=== PATIENT | male | born 1935 | race African-American/Black ===

== ENCOUNTER 2017-10-31 09:17 | Emergency (ER) | payer OTHER ==
[~2017-10-31] VITALS: Ht 180.3 cm; Wt 98.0 kg
[2017-10-31 09:18] VITALS: BP_SYST 154
[2017-10-31] MEDS ORDERED: CYCLOBENZAPRINE HCL 10 MG TABLET (FLEXERIL) PO ONE (09:45)
[2017-10-31] MEDS ORDERED: KETOROLAC TROMETHAMINE 30 MG VIAL IM ONE (09:45)
[2017-10-31 10:20] LABS: BILIRUBIN,URINE NEGATIVE (NEGATIVE); BLOOD, URINE 2+ (NEGATIVE); CLARITY/URINE HAZY (CLEAR); COLOR,URINE YELLOW (YELLOW); GLUCOSE,URINE NEGATIVE (NEGATIVE); KETONES,URINE NEGATIVE (NEGATIVE); LEUKOCYTE ESTERASE ,URINE 3+ (NEGATIVE); NITRITE, URINE POSITIVE (NEGATIVE); PH,URINE 6.5 (5.0-8.0); PROTEIN URINE NEGATIVE (NEGATIVE); UROBILINOGEN,URINE 0.2 (0.2-1.0)
[2017-10-31 10:29] LABS: BACTERIA,URINE MANY /HPF (None Seen)
[2017-10-31] MEDS ORDERED: CIPROFLOXACIN HCL 500 MG TABLET PO ONE (10:30)
[2017-10-31 10:47] VITALS: BP_SYST 154
== END 2017-10-31 10:46 | disposition home or self-care (01) ==
LOC: SED 09:17
DX: N12 Tubulo-interstitial nephritis, not specified as acute or chronic (principal); Z88.0 Allergy status to penicillin; Z88.8 Allergy status to other drugs, medicaments and biological substances
CPT/HCPCS: 81000; 87086; 96372; 99284; J1885; 87186-TC

== ENCOUNTER 2018-03-07 14:16 | Inpatient (IN) | payer OTHER ==
[~2018-03-07] VITALS: Ht 180.3 cm; Wt 95.3 kg
[2018-03-07 14:20] VITALS: BP_SYST 144
--- NOTE | 2018-03-07 14:22 | NUR ---
Patient to ER bed 05 to gown for evaluation. Side rails up.
--- NOTE | 2018-03-07 14:33 | NUR ---
patient is AOx4 arriving from home alone with c/o lower right abd pain 10/19 that comes and goes x 1 day. patient states he has never had this pain before but it hurts really bad. patient goes on to add that he can not pass gas and it hurts to touch his lower right abd. no other complaint or injury at this time.
--- NOTE | 2018-03-07 14:36 | NUR ---
ER at bedside examining patient.
[2018-03-07] MEDS ORDERED: NACL 0.9% 1,000 ML IV ONE (14:45)
--- NOTE | 2018-03-07 15:00 | NUR ---
RD at bedside for CRX.
--- NOTE | 2018-03-07 15:00 | NUR ---
Gary michel in ED - 03/07/18 at [email or web address] at bedside for CRX.
--- NOTE | 2018-03-07 15:00 | NUR ---
RD at bedside for chest xray.
[2018-03-07 15:06] LABS: BILIRUBIN,URINE NEGATIVE (NEGATIVE); BLOOD, URINE NEGATIVE (NEGATIVE); CLARITY/URINE CLEAR (CLEAR); COLOR,URINE YELLOW (YELLOW); GLUCOSE,URINE NEGATIVE (NEGATIVE); KETONES,URINE NEGATIVE (NEGATIVE); LEUKOCYTE ESTERASE ,URINE NEGATIVE (NEGATIVE); NITRITE, URINE NEGATIVE (NEGATIVE); PROTEIN URINE NEGATIVE (NEGATIVE); UROBILINOGEN,URINE 0.2 (0.2-1.0)
--- NOTE | 2018-03-07 15:14 | NUR ---
Gary michel in ED - 03/07/18 at [email or web address] at [facility] for KYLE.
[2018-03-07 15:40] LABS: ANION GAP 9 (5-15); CALCIUM 9.3 mg/dL (8.4-11.0); CHLORIDE 107 mmol/L (98-107); CREATININE 1.64 mg/dL (0.55-1.30); GLUCOSE 104 mg/dL (70-99); POTASSIUM 4.1 mmol/L (3.5-5.1); SODIUM SERUM 144 mmol/L (136-145); UREA NITROGEN, BLOOD 19 mg/dL (8-21)
[2018-03-07 15:43] LABS: BASOPHILS # (AUTO) 0.1 K/uL (0.0-0.2); BASOPHILS % (AUTO) 1.7 % (0.0-2.0); EOSINOPHILS # (AUTO) 0.1 K/uL (0.0-0.4); EOSINOPHILS % (AUTO) 2.2 % (0.0-4.0); HEMOGLOBIN 13.2 g/dL (14.0-18.0); LYMPHOCYTES # (AUTO) 1.6 K/uL (1.0-5.5); LYMPHOCYTES % (AUTO) 32.4 % (20.5-51.5); MEAN CORPUSCULAR HEMOGLOBIN 28 pg (27-31); MEAN CORPUSCULAR HGB CONC 33 % (32-36); MEAN CORPUSCULAR VOLUME 86 fL (79.0-98.0); MONOCYTES # (AUTO) 0.2 K/uL (0.0-1.0); MONOCYTES % (AUTO) 4.7 % (1.7-9.3); NEUTROPHILS # (AUTO) 2.9 K/uL (1.8-7.7); PLATELET COUNT (AUTO) 158 K/uL (130-430); PROTHROMBIN TIME 10.4 SECS (9.5-12.5); RED BLOOD CELL COUNT(AUTO) 4.66 MIL/uL (4.2-6.2); RED CELL DISTRIBUTION WIDTH 13.5 % (9.0-15.0); WHITE BLOOD COUNT (AUTO) 4.9 K/uL (4.8-10.8)
[2018-03-07 15:46] LABS: ALANINE AMINOTRANSFERASE 17 U/L (12-78); ALBUMIN 3.6 g/dL (3.4-4.8); ASPARTATE AMINOTRANSFERASE 15 U/L (10-37); TOTAL BILIRUBIN 0.4 mg/dL (0.0-1.0)
--- NOTE | 2018-03-07 15:59 | NUR ---
patient states he does not have any pain currently, however, he has had pain 8/10 a x3 in the past 1 hour.
--- NOTE | 2018-03-07 17:00 | NUR ---
Patient resting quietly in no acute distress, awaiting dispo.
--- NOTE | 2018-03-07 17:49 | NUR ---
Patient will be admitted to care of Dr. Dunn. Admitted to tele unit. Will go to room 113B.
--- NOTE | 2018-03-07 17:56 | NUR ---
Pt states that he doesn't take any home meds, only vitamins
--- NOTE | 2018-03-07 17:57 | NUR ---
Transfer to tele room 113-B via ACLS protocol. Licensed nurse present. IV present no signs or symptoms of infiltration.
--- NOTE | 2018-03-07 18:09 | NUR ---
Admission Note Received patient from ER with diagnosis of BRADYCARDIA. Initial Plan of Care discussed-patient verbalized understanding. Oriented to room, call light, pain management and safety.
[2018-03-07 18:16] VITALS: BP_SYST 145
--- NOTE | 2018-03-07 18:18 | NUR ---
CONSULTATION PAGED/CALLED Reason for Consultation: [] BRADYCARDIA Person Who was Notified: [] HENRRY Consulting Physician: [] DR Reymundo MELCHOR CASINO SHIFT MANAGER FOR DR LONDONO Health Data Analyst Specialty: [] CARDIOLOGY Ordering Physician: [] DR CHARLES
--- NOTE | 2018-03-07 18:40 | NUR ---
opening note patient is resting in bed A&Ox4, educated container shop welder light system, patient verbalized understanding, no other needs at this time, bed in the lowest position, bed alarm on, call light within reach, two side rails up, bed close to nurse station, fall precautions in place.
--- NOTE | 2018-03-07 19:29 | NUR ---
closing note report given at bedside, patient is resting in bed A&Ox4, family present in room, no needs at this time, endorse report to noc shift nurse, bed in the lowest position, bed alarm on, call light within reach, two side rails up, bed close to nurse station, fall precautions in place.
--- NOTE | 2018-03-07 19:53 | NUR ---
OPENING NOTES Pt and endorsement received from day shift nurse. Pt is AAOx4, sitting in bed while eating dinner. Family at bedside. Pt on saline lock on left hand G22. No complains of pain or discomfort at this time. No signs of acute distress noted. Call light with pt, bed alarm on and at its lowest level. Will continue to monitor.
[2018-03-07 20:00] VITALS: BP_SYST 127
[2018-03-07] MEDS ORDERED: LEVOFLOXACIN 500 MG/D5W 100 ML IV ONE ×2 (21:00→22:02)
[2018-03-07] MEDS ORDERED: metroNIDAZOLE 500 mg/NS 100 ML IV ONE (21:00)
[2018-03-07] MEDS ORDERED: ONDANSETRON HCL 4 MG/2 ML VIAL IVP PRN (21:00)
[2018-03-07] MEDS ORDERED: ALBUTEROL SULFATE 0.083% 2.5 MG/3 ML VIAL.NEB INH PRN (21:00)
[2018-03-07] MEDS ORDERED: MORPHINE 4 MG/ML INJ. SYRINGE IVP PRN (21:00)
--- NOTE | 2018-03-07 21:00 | NUR ---
SPOKE TO DR. MELCHOR Spoke to Dr. Melchor over the phone and he asked pt's condition and diagnosis. Told Dr. Melchor pt's diagnosis and lowest HR was 44bpm. Also told Dr. Melchor that pt is not complaining of abdominal pain. Dr. Melchor said he will see the pt in the morning. No orders were given.
[2018-03-07] MEDS ORDERED: metroNIDAZOLE 500 mg/NS 200 ML IV ONE (22:02)
--- NOTE | 2018-03-07 22:15 | NUR ---
ROUNDS Pt is awake, alert while lying in bed. No signs of acute distress and no complains of pain or discomfort at this time. Encouraged to use call light when needed. Safety precautions in place, bed alarm on and at lowest level, call light with pt. Will continue to monitor. Addendum: 03/09/18 at 0211 by Siobhan Herrera RN WRONG ENTRY, WRONG DATE. DISREGARD NOTES.
[2018-03-07 22:44] VITALS: BP_SYST 127
[2018-03-07] MEDS: NACL 0.9% 1,000 ML IV SCH (22:57)
--- NOTE | 2018-03-07 23:30 | NUR ---
RESTING Pt is resting in bed with both eyes closed. With visible chest rise and fall with non-labored breathing noted. No complains of pain or discomfort at this time. No signs of acute distress noted. Tele monitor Rafael stated that the pt had a second degree AVB Block Type 2. Charge nurse Ayan made aware. Will continue to monitor.
--- NOTE | 2018-03-07 23:50 | NUR ---
EKG DONE AT BEDSIDE EKG done at bedside by RT. Results will be endorsed and reported to MD in the morning.
[2018-03-08] VITALS: BP_SYST 118
--- NOTE | 2018-03-08 03:39 | NUR ---
RESTING Pt is resting in bed with both eyes closed. With visible chest rise and fall with non-labored breathing noted. No complains of pain or discomfort at this time. No signs of acute distress noted. Safety precautions in place and call light with pt. Will continue to monitor.
--- NOTE | 2018-03-08 05:18 | NUR ---
RESTING Pt is resting in bed with both eyes closed. With visible chest rise and fall with non-labored breathing noted. No signs of acute distress noted. Safety precautions in place and call light with pt. Will continue to monitor.
[2018-03-08] MEDS: metroNIDAZOLE 500 mg/NS 100 ML IV SCH ×3 (05:54→22:20)
[2018-03-08] MEDS: NACL 0.9% 1,000 ML IV SCH ×2 (06:46→14:18)
--- NOTE | 2018-03-08 06:58 | NUR ---
CLOSING NOTES Pt is resting in bed with both eyes closed. With visible chest rise and fall noted. No signs of acute distress or SOB noted. All needs attended throughout the shift. Safety precautions maintained. Will endorse to day shift nurse.
[2018-03-08 07:04] LABS: BASOPHILS % (AUTO) 0.4 % (0.0-2.0); EOSINOPHILS # (AUTO) 0.1 K/uL (0.0-0.4); EOSINOPHILS % (AUTO) 3.9 % (0.0-4.0); HEMATOCRIT 35.9 % (36-54); LYMPHOCYTES # (AUTO) 1.3 K/uL (1.0-5.5); LYMPHOCYTES % (AUTO) 40.8 % (20.5-51.5); MEAN CORPUSCULAR HEMOGLOBIN 29 pg (27-31); MEAN CORPUSCULAR HGB CONC 34 % (32-36); MEAN CORPUSCULAR VOLUME 85 fL (79.0-98.0); MONOCYTES # (AUTO) 0.2 K/uL (0.0-1.0); MONOCYTES % (AUTO) 6.6 % (1.7-9.3); NEUTROPHILS # (AUTO) 1.5 K/uL (1.8-7.7); NEUTROPHILS % (AUTO) 48.3 % (40.0-70.0); PLATELET COUNT (AUTO) 137 K/uL (130-430); RED BLOOD CELL COUNT(AUTO) 4.21 MIL/uL (4.2-6.2); RED CELL DISTRIBUTION WIDTH 13.4 % (9.0-15.0); WHITE BLOOD COUNT (AUTO) 3.1 K/uL (4.8-10.8)
[2018-03-08 07:15] LABS: ANION GAP 6 (5-15); CALCIUM 8.8 mg/dL (8.4-11.0); CHLORIDE 110 mmol/L (98-107); CREATININE 1.35 mg/dL (0.55-1.30); GLUCOSE 90 mg/dL (70-99); POTASSIUM 4.8 mmol/L (3.5-5.1); SODIUM SERUM 145 mmol/L (136-145); UREA NITROGEN, BLOOD 16 mg/dL (8-21)
[2018-03-08 07:25] LABS: ALANINE AMINOTRANSFERASE 13 U/L (12-78); ALBUMIN 2.9 g/dL (3.4-4.8); ASPARTATE AMINOTRANSFERASE 14 U/L (10-37); TOTAL BILIRUBIN 0.6 mg/dL (0.0-1.0)
[2018-03-08 08:00] VITALS: BP_SYST 136
--- NOTE | 2018-03-08 08:00 | NUR ---
Opening notes, received pt in bed, pt is aaox4, denies pain, no sob, no resp distress. hr is 43, no c.o dizziness, no chest pain. pt encouraged to call for assist and report to nurse chest pain. no c/o of abdominal pain at this time. safety precaution in place. call light in reach, bed in low position. bed alarm on. will cont to monitor.
[2018-03-08 08:03] LABS: CHOLESTEROL 127 mg/dL (<200); HDL CHOLESTEROL 43 mg/dL (>45); LDL CHOLESTEROL 68 mg/dL (<100); TRIGLYCERIDES 75 mg/dL (30-150)
--- NOTE | 2018-03-08 10:00 | NUR ---
pt in bed, resting comfortably, no c/o pain. no sob, will cont to monitor.
--- NOTE | 2018-03-08 10:15 | NUR ---
dr jacobs was here and seen and examined pt. requested md for dvt prophylaxis. md said pt will be going home today.
[2018-03-08 12:00] VITALS: BP_SYST 135
--- NOTE | 2018-03-08 12:20 | NUR ---
PT IN BED, NO C/O PAIN, NO SOB, NO DISTRESS. SAFETY PRECAUTION KEPT IN PLACE. WILL CONT TO MONITOR.
--- NOTE | 2018-03-08 15:00 | NUR ---
PT IN BED, NO C/O PAIN, NO SOB, NO DISTRESS. FAMILY AT BEDSIDE. UPDATE WITH PT'S STATUS. SAFETY PRECAUTION KEPT IN PLACE. WILL CONT TO MONITOR.
[2018-03-08 17:00] VITALS: BP_SYST 123
--- NOTE | 2018-03-08 18:32 | NUR ---
CLOSING NOTES, PT HAS BEEN STABLE THE WHOLE SHIFT, NO C/O PAIN, NO EPISODES OF RESP DISTRESS. NO ABDOMINAL PAIN. PT CLEARED BY DR MELCHOR FOR DISCHARGE. IV FLUIDS INFUSING WELL. NO S/S OF INFILTRATION ON IV SITE. SAFETY PRECAUTION KEPT IN PLACE. WILL ENDORSE TO NIGHT RN.
--- NOTE | 2018-03-08 19:54 | NUR ---
OPENING NOTES Pt and endorsement received from day shift nurse. Pt is AAOx4, sitting on a chair with daughters David and Lissa at bedside. No complains of pain or discomfort at this time and no signs of acute distress noted. Call light being fixed by a security at this time. Educated on safety precautions and encouraged to use call light when needed. Will continue to monitor.
[2018-03-08 20:27] VITALS: BP_SYST 126
--- NOTE | 2018-03-08 22:15 | NUR ---
ROUNDS Pt is awake, alert while lying in bed. No signs of acute distress and no complains of pain or discomfort at this time. Encouraged to use call light when needed. Safety precautions in place, bed alarm on and at lowest level, call light with pt. Will continue to monitor.
--- NOTE | 2018-03-08 23:50 | NUR ---
ASSISTED PT TO THE RESTROOM Assisted pt to the restroom and back to bed. Pt tolerated well. No signs of SOB or acute distress. Safety precautions in place and call light with pt. Will continue to monitor.
[2018-03-09 00:51] VITALS: BP_SYST 146
[2018-03-09] MEDS: NACL 0.9% 1,000 ML IV SCH (01:41)
--- NOTE | 2018-03-09 04:00 | NUR ---
ROUNDS Pt woke up and sitting on the bed. No complains of pain or discomfort. Pt asked if he can shower later in the morning, told him that he will have to be cleared or get approval from the doctor since he is a tele pt. Pt verbalizes understanding. Assisted pt back to bed. Call light with pt, bed alarm on and at lowest level. Will continue to monitor.
[2018-03-09] MEDS: metroNIDAZOLE 500 mg/NS 100 ML IV SCH (05:12)
--- NOTE | 2018-03-09 05:21 | NUR ---
PT GOT UP Pt got up the bed, disconnected IVF and removed monitoring coordinator. Pt insisted to shower and went to the restroom but SUPERVISOR CYTOLOGY Q calmed him down and assisted him back to bed. Explained to pt that he can't have shower at this time. Explained to him again that the doctor needs approval for him to take a shower. Reconnected IVF and tele monitor to pt. Safety precautions in place with bed alarm on and at lowest level. Call light with pt. Will continue to monitor.
--- NOTE | 2018-03-09 06:44 | NUR ---
CLOSING NOTES Pt is resting in bed with both eyes closed. With visible chest rise and fall with non-labored breathing noted. No signs of acute distress or SOB. All needs attended throughout the shift. Safety precautions in place and call light with pt. Will endorse to day shift nurse.
[2018-03-09 08:00] VITALS: BP_SYST 150
--- NOTE | 2018-03-09 08:00 | NUR ---
Opening Note received report from shift production associate RN, pt resting in bed, A&Ox4, respirations even and unlabored on room air, pt denies any pain, SOB, or dizziness, no acute distress noted, IV site clean, dry, intact, and infusing well, pt educated on use of call light and asked to call for assistance, pt verbalized understanding, call light in reach, pt educated on use of bed alarm for pt safety, pt refusing bed alarm, bed in low and locked position, room close to nurses station, fall and aspiration precautions in place.
--- NOTE | 2018-03-09 09:26 | NUR ---
RN Rounds pt sitting in bedside chair, pts daughter at bedside, pt denies any pain or SOB, no acute distress noted, no additional needs at this time, fall and aspiration precautions in place.
--- NOTE | 2018-03-09 09:36 | NUR ---
MD Rounds rounds with Dr. William MD informed that pt had episodes of v-tach on the monitor this AM, pt resting in bed, denies any chest pain, SOB, or dizziness, no acute distress noted, Dr. Hardy paged per Dr. Thomas's request.
[2018-03-09 09:45] VITALS: BP_SYST 150
--- NOTE | 2018-03-09 10:40 | NUR ---
MD Rounds round with Dr. Robles MD made aware of episode of v-tach this AMMD at bedside examining pt, per MD okay to discharge patient home.
--- NOTE | 2018-03-09 11:00 | NUR ---
Discharge orders to discharge pt home, pt and pts daughter provided with discharge packet and instructions, pt verbalized understanding, IV catheter removed, catheter intact, no bleeding, hospital ID band removed, tele monitor removed, pt stable, no acute distress noted, steady gait noted, pt accompanied by his daughter for discharge home, all belongings sent with pt, pt taken to parking lot via wheelchair.
--- NOTE | 2018-03-11 13:55 | NUR ---
Discharge Planning: DCP faxed pt order to Anitra at [facility] (f [phone] p [phone])
--- NOTE | 2018-03-13 15:48 | NUR ---
DISCHARGE FOLLOW UP PHONE CALL MUD MIXER OPERATOR phoned pt but no answer. MUD MIXER OPERATOR phoned dtr Annetta instead who states that the pt is doing well. Dtr states, no new prescription given. Dtr also stated they have not made an appointment with PCP due to the holiday and will bring the discharge packet to the appointment. At this time, there are no questions/concerns but will call SS if any arises.
== END 2018-03-09 11:00 | disposition home or self-care (01) | DRG 392 ==
LOC: SED 14:16 → STU 17:48
PROVIDERS: ADMIT Internal Medicine; ATTEND Internal Medicine
DX: R10.13 Epigastric pain (principal); R00.1 Bradycardia, unspecified; I10 Essential (primary) hypertension; G89.29 Other chronic pain; M54.9 Dorsalgia, unspecified; Z88.6 Allergy status to analgesic agent; Z85.46 Personal history of malignant neoplasm of prostate; Z88.0 Allergy status to penicillin; Z79.899 Other long term (current) drug therapy
CPT/HCPCS: 36415; 71045; 80053; 80061; 81003; 83605; 84484; 85025; 85610-TC; 85730-TC; 87040-TC; 93005; 93306; 96360; 99285; G0378; J1956; J3490; J7030

== ENCOUNTER 2018-11-21 13:49 | Inpatient (IN) | payer OTHER ==
[~2018-11-21] VITALS: Ht 179.1 cm; Wt 103.0 kg
[2018-11-21 13:50] VITALS: BP_SYST 137
[2018-11-21 14:48] LABS: HEMATOCRIT 40.4 % (36-54); HEMOGLOBIN 13.4 g/dL (14.0-18.0); MEAN CORPUSCULAR HEMOGLOBIN 29 pg (27-31); MEAN CORPUSCULAR HGB CONC 33 % (32-36); MEAN CORPUSCULAR VOLUME 87 fL (79.0-98.0); PLATELET COUNT (AUTO) 156 K/uL (130-430); RED BLOOD CELL COUNT(AUTO) 4.63 MIL/uL (4.2-6.2); RED CELL DISTRIBUTION WIDTH 14.4 % (9.0-15.0); WHITE BLOOD COUNT (AUTO) 3.5 K/uL (4.8-10.8)
[2018-11-21 14:58] LABS: ANION GAP 5 (5-15); CALCIUM 8.9 mg/dL (8.4-11.0); CHLORIDE 108 mmol/L (98-107); CREATININE 1.56 mg/dL (0.55-1.30); GLUCOSE 95 mg/dL (70-99); POTASSIUM 4.4 mmol/L (3.5-5.1); SODIUM SERUM 143 mmol/L (136-145); UREA NITROGEN, BLOOD 16 mg/dL (8-21)
[2018-11-21 15:04] LABS: ALANINE AMINOTRANSFERASE 16 U/L (12-78); ALBUMIN 3.8 g/dL (3.4-4.8); ASPARTATE AMINOTRANSFERASE 14 U/L (10-37); TOTAL BILIRUBIN 0.4 mg/dL (0.0-1.0)
[2018-11-21] MEDS ORDERED: MULT-1200 PO (15:54)
[2018-11-21] MEDS ORDERED: CHOL400D6 PO (15:54)
[2018-11-21 16:00] LABS: BAND % (MANUAL) 1 % (0-6); LYMPHOCYTES % (MANUAL) 42 % (20-46)
[2018-11-21 16:01] LABS: BASOPHILS % (MANUAL) 0 % (0-2); EOSINOPHILS % (MANUAL) 3 % (0-7); MONOCYTES % (MANUAL) 6 % (0-11)
[2018-11-21] MEDS ORDERED: ASPIRIN 81 MG TAB.CHEW PO SCH (17:15)
[2018-11-21 17:17] VITALS: BP_SYST 122
[2018-11-21 18:07] LABS: CHOLESTEROL 145 mg/dL (<200); HDL CHOLESTEROL 51 mg/dL (>45); LDL CHOLESTEROL 78 mg/dL (<100); TRIGLYCERIDES 90 mg/dL (30-150)
[2018-11-21] MEDS ORDERED: CLOPIDOGREL BISULFATE 75 MG TABLET PO ONE (18:15)
[2018-11-21 21:27] VITALS: BP_SYST 110
[2018-11-22 00:15] VITALS: BP_SYST 116
[2018-11-22 07:38] VITALS: BP_SYST 126
[2018-11-22] MEDS ORDERED: CLOPIDOGREL BISULFATE 75 MG TABLET PO SCH (09:00)
[2018-11-22 12:30] VITALS: BP_SYST 129
[2018-11-22 14:23] VITALS: BP_SYST 126
== END 2018-11-22 15:00 | disposition home or self-care (01) | DRG 392 ==
LOC: SED 13:49 → STU 16:40 → SMU 16:54 → STU 21:25
PROVIDERS: ADMIT Internal Medicine Hospice and Palliative Medicine; ATTEND Internal Medicine Hospice and Palliative Medicine
DX: K21.9 Gastro-esophageal reflux disease without esophagitis (principal); G89.29 Other chronic pain; I10 Essential (primary) hypertension; Z88.0 Allergy status to penicillin; Z88.6 Allergy status to analgesic agent; Z79.899 Other long term (current) drug therapy; Z85.46 Personal history of malignant neoplasm of prostate
CPT/HCPCS: 36415; 71045; 80053; 80061; 82550-TC; 84484; 85007; 85027; 85379; 93005; 93306; 99285; G0378

== ENCOUNTER 2021-05-08 09:47 | Emergency (ER) | payer OTHER ==
[~2021-05-08] VITALS: Ht 180.3 cm; Wt 95.3 kg
[~2021-05-08 09:47] MED LIST: CHOL400D6 PO; MULT-1200 PO
[2021-05-08 09:50] VITALS: BP_SYST 144
[2021-05-08 10:36] LABS: WHITE BLOOD COUNT (AUTO) 3.1 K/uL (4.8-10.8)
[2021-05-08 10:44] LABS: ANION GAP 10 (5-15); CALCIUM 8.8 mg/dL (8.4-11.0); CHLORIDE 105 mmol/L (98-107); GLUCOSE 122 mg/dL (70-99); POTASSIUM 4.5 mmol/L (3.5-5.1); SODIUM SERUM 142 mmol/L (136-145); UREA NITROGEN, BLOOD 20 mg/dL (8-21)
[2021-05-08 10:52] LABS: ALANINE AMINOTRANSFERASE 18 U/L (12-78); ALBUMIN 3.7 g/dL (3.4-4.8); ASPARTATE AMINOTRANSFERASE 25 U/L (10-37); TOTAL BILIRUBIN 0.7 mg/dL (0.0-1.0)
[2021-05-08 11:04] LABS: EOSINOPHILS # (AUTO) 0.1 K/uL (0.0-0.4); EOSINOPHILS % (AUTO) 2.8 % (0.0-4.0); HEMATOCRIT 40.6 % (36-54); HEMOGLOBIN 13.4 g/dL (14.0-18.0); LYMPHOCYTES # (AUTO) 1.2 K/uL (1.0-5.5); LYMPHOCYTES % (AUTO) 39.2 % (20.5-51.5); MEAN CORPUSCULAR HEMOGLOBIN 28 pg (27-31); MEAN CORPUSCULAR HGB CONC 33 % (32-36); MEAN CORPUSCULAR VOLUME 86 fL (79.0-98.0); MONOCYTES # (AUTO) 0.2 K/uL (0.0-1.0); MONOCYTES % (AUTO) 6.3 % (1.7-9.3); NEUTROPHILS # (AUTO) 1.6 K/uL (1.8-7.7); NEUTROPHILS % (AUTO) 50.7 % (40.0-70.0); PLATELET COUNT (AUTO) 169 K/uL (130-430); RED BLOOD CELL COUNT(AUTO) 4.73 MIL/uL (4.2-6.2); RED CELL DISTRIBUTION WIDTH 14.1 % (9.0-15.0)
[2021-05-08 13:22] VITALS: BP_SYST 138
== END 2021-05-08 13:22 | disposition home or self-care (01) ==
LOC: SED 09:47
DX: R10.9 Unspecified abdominal pain (principal); R00.1 Bradycardia, unspecified; I10 Essential (primary) hypertension; Z88.0 Allergy status to penicillin; Z88.6 Allergy status to analgesic agent; Z79.899 Other long term (current) drug therapy
CPT/HCPCS: 36415; 71045; 80053; 83735; 83880; 84484; 85025; 93005; 99285

== ENCOUNTER 2021-10-11 05:56 | Inpatient (IN) | payer OTHER ==
[~2021-10-11] VITALS: Ht 180.3 cm; Wt 93.9 kg
[2021-10-11 06:10] VITALS: BP_SYST 138
--- NOTE | 2021-10-11 06:33 | NUR ---
Pt BIB daughter C/O palpitations and dizziness Hx of pacemaker AOX4 VSS Able to make needs known Will continue to monitor
--- NOTE | 2021-10-11 06:33 | NUR ---
Placed in room 1 . Placed on cardiac cath lab radiology technologist, blood pressure machine and pulse oximeter. To gown for exam. Side rails up. MD at bedside
[2021-10-11 06:57] LABS: BASOPHILS % (AUTO) 1.1 % (0.0-2.0); EOSINOPHILS # (AUTO) 0.1 K/uL (0.0-0.4); EOSINOPHILS % (AUTO) 2.7 % (0.0-4.0); HEMATOCRIT 38.5 % (36-54); HEMOGLOBIN 12.9 g/dL (14.0-18.0); LYMPHOCYTES # (AUTO) 1.4 K/uL (1.0-5.5); LYMPHOCYTES % (AUTO) 41.9 % (20.5-51.5); MEAN CORPUSCULAR HEMOGLOBIN 29 pg (27-31); MEAN CORPUSCULAR HGB CONC 34 % (32-36); MEAN CORPUSCULAR VOLUME 86 fL (79.0-98.0); MONOCYTES # (AUTO) 0.2 K/uL (0.0-1.0); MONOCYTES % (AUTO) 6.7 % (1.7-9.3); NEUTROPHILS # (AUTO) 1.6 K/uL (1.8-7.7); NEUTROPHILS % (AUTO) 47.6 % (40.0-70.0); PLATELET COUNT (AUTO) 140 K/uL (130-430); RED CELL DISTRIBUTION WIDTH 14.4 % (9.0-15.0); WHITE BLOOD COUNT (AUTO) 3.3 K/uL (4.8-10.8)
[2021-10-11 07:08] LABS: ANION GAP 7 (5-15); CALCIUM 9.1 mg/dL (8.4-11.0); CHLORIDE 111 mmol/L (98-107); CREATININE 1.69 mg/dL (0.55-1.30); GLUCOSE 119 mg/dL (70-99); POTASSIUM 4.2 mmol/L (3.5-5.1); SODIUM SERUM 146 mmol/L (136-145); UREA NITROGEN, BLOOD 19 mg/dL (8-21)
[2021-10-11 07:10] LABS: INR 1.1 (0.80-1.20)
--- NOTE | 2021-10-11 07:14 | NUR ---
Gave report to roberto for continous of care
[2021-10-11 07:17] LABS: ALANINE AMINOTRANSFERASE 9 U/L (12-78); ALBUMIN 3.5 g/dL (3.4-4.8); ASPARTATE AMINOTRANSFERASE 16 U/L (10-37); TOTAL BILIRUBIN 0.3 mg/dL (0.0-1.0)
[2021-10-11] MEDS ORDERED: MECLIZINE HCL 25 MG TABLET (ANITVERT) PO ONE (07:30)
--- NOTE | 2021-10-11 07:31 | NUR ---
DR. BOURGEOIS WENT BEDSIDE AND TALKED TO PT AGAIN. PT IS PLANNED TO ADMIT TO HOSPITAL FOR OBSERVATION.
--- NOTE | 2021-10-11 08:45 | NUR ---
DR. PABON CALLED AND ADMITED PT TO TELE FOR ABSERVATION.
--- NOTE | 2021-10-11 13:53 | NUR ---
STILL NO BED IN TELE. HOLDING IN ER. DAUGHTER WALKED IN TO VISIT PT. LUNCH OFFERED TO PT. PT ATE WELL.
--- NOTE | 2021-10-11 17:34 | NUR ---
CONSULT CARDIOLOGY PALPITATIONS DR ZAFAR [phone] S/W KIERRA EXCHANGE
--- NOTE | 2021-10-11 17:39 | NUR ---
GOT BED IN TEL 108. PT WAS SENT TO TELE. REPORT GIVEN BEDSIDE TO TENZIN ENRIQUE.
--- NOTE | 2021-10-11 17:45 | NUR ---
Report received from IVA Lerma. Patient in stable condition. Alert and oriented x4. No neuro deficits. Patient is ambulatory with steady gait. Vital signs stable. Patient is able to make needs known. No skin issues noted. Will continue to monitor. Call light within reach.
[2021-10-11 18:04] VITALS: BP_SYST 146
[2021-10-11 18:17] VITALS: BP_SYST 116
--- NOTE | 2021-10-11 20:00 | NUR ---
RECEIVED IN BED A/OX4 DENIES PAIN AT THIS TIME ASSESSMENT COMPLETED PLAN OF CARE REVIEWED NO DISTRESS NOTED DENIES CHEST PAIN AND PALPITATIONS AT THIS TIME BREATHING EVEN NON LABORED ORIENTED TO ROOM CALL LIGHT IN REACH ALL PERSONAL ITEMS WITHIN REACH WILL CONTINUE TO MONITOR AND ASSESS
[2021-10-11 20:13] VITALS: BP_SYST 134
[2021-10-11] MEDS: APIXABAN 2.5 MG TABLET PO SCH (21:03)
[2021-10-11] MEDS: MECLIZINE HCL 25 MG TABLET (ANITVERT) PO SCH (21:03)
[2021-10-11 22:16] VITALS: BP_SYST 145
[2021-10-12] VITALS: BP_SYST 136
--- NOTE | 2021-10-12 00:30 | NUR ---
NO DISTRESS NOTED RESTING EASILY AROUSED DENIES PAIN VSS CALL LIGHT REMAINS IN REACH WILL CONTINUE TO MONITOR AND ASSESS
[2021-10-12 02:58] LABS: ALANINE AMINOTRANSFERASE 14 U/L (12-78); ALBUMIN 3.3 g/dL (3.4-4.8); ANION GAP 3 (5-15); ASPARTATE AMINOTRANSFERASE 17 U/L (10-37); CHLORIDE 112 mmol/L (98-107); CREATININE 1.59 mg/dL (0.55-1.30); GLUCOSE 112 mg/dL (70-99); POTASSIUM 4.5 mmol/L (3.5-5.1); SODIUM SERUM 146 mmol/L (136-145); TOTAL BILIRUBIN 0.4 mg/dL (0.0-1.0); UREA NITROGEN, BLOOD 21 mg/dL (8-21)
[2021-10-12 03:17] LABS: CORRECTED WHITE BLOOD COUNT 4.1 K/uL (4.5-11.0); WHITE BLOOD COUNT (AUTO) 4.1 K/uL (4.8-10.8)
[2021-10-12 03:18] LABS: HEMATOCRIT 38.6 % (36-54); HEMOGLOBIN 13.1 g/dL (14.0-18.0); MEAN CORPUSCULAR HEMOGLOBIN 29 pg (27-31); MEAN CORPUSCULAR HGB CONC 34 % (32-36); MEAN CORPUSCULAR VOLUME 85 fL (79.0-98.0); PLATELET COUNT (AUTO) 144 K/uL (130-430); RED BLOOD CELL COUNT(AUTO) 4.56 MIL/uL (4.2-6.2); RED CELL DISTRIBUTION WIDTH 14.2 % (9.0-15.0)
[2021-10-12 03:19] LABS: BASOPHILS % (AUTO) 0.8 % (0.0-2.0); EOSINOPHILS % (AUTO) 1.9 % (0.0-4.0); LYMPHOCYTES # (AUTO) 1.2 K/uL (1.0-5.5); LYMPHOCYTES % (AUTO) 29.2 % (20.5-51.5); MONOCYTES # (AUTO) 0.4 K/uL (0.0-1.0); MONOCYTES % (AUTO) 9.2 % (1.7-9.3); NEUTROPHILS # (AUTO) 2.4 K/uL (1.8-7.7); NEUTROPHILS % (AUTO) 58.9 % (40.0-70.0)
[2021-10-12 03:20] LABS: EOSINOPHILS # (AUTO) 0.1 K/uL (0.0-0.4)
[2021-10-12 03:36] LABS: CHOLESTEROL 152 mg/dL (<200); HDL CHOLESTEROL 53 mg/dL (>45); LDL CHOLESTEROL 72 mg/dL (<100); TRIGLYCERIDES 54 mg/dL (30-150)
[2021-10-12 04:00] VITALS: BP_SYST 142
[2021-10-12 08:18] VITALS: BP_SYST 156
[2021-10-12] MEDS ORDERED: ACETAMINOPHEN 325 MG TABLET PO PRN (08:45)
[2021-10-12] MEDS ORDERED: NALOXONE HCL 0.4 MG/ML AMP (NARCAN) IVP PRN ×2 (08:45)
[2021-10-12] MEDS ORDERED: LORazepam 2 MG/ML VIAL IVP PRN (08:45)
[2021-10-12] MEDS ORDERED: HYDROcodone/ACETAMIN 10-325 MG TAB PO PRN (08:45)
[2021-10-12] MEDS ORDERED: ONDANSETRON HCL 4 MG/2 ML VIAL IVP PRN (08:45)
[2021-10-12] MEDS ORDERED: HYDROcodone/ACETAMIN 5-325 MG TAB (NORCO/ VICODIN) PO PRN (08:45)
[2021-10-12] MEDS ORDERED: METOPROLOL SUCCINATE 50 MG TAB.SR.24H (TOPROL XL) PO ONE (09:30)
[2021-10-12] MEDS: MULTIVITS,CA,MINERALS/IRON/FA 1 TABLET PO SCH (10:03)
[2021-10-12] MEDS: APIXABAN 2.5 MG TABLET PO SCH ×2 (10:04→20:45)
[2021-10-12] MEDS: MECLIZINE HCL 25 MG TABLET (ANITVERT) PO SCH ×3 (10:12→20:45)
[2021-10-12] MEDS: D5/0.45 NS 1,000 ML IV SCH ×3 (10:21→20:46)
--- NOTE | 2021-10-12 11:11 | NUR ---
Logo Admission Assessment - Care Management Last Saved By: Stella Mcgovern Last Saved On: 10/12/2021 11:11 AM (PT) Created By: Stella Mcgovern Created On: 10/12/2021 11:09 AM (PT) Patient Information Patient Name: THERESA HUERTA [address]: [address] [place] [id number] SSN: : 1935 (age 86 years) Work Phone: [phone] Gender: Male Alternative Phone: Marital Status: Race: BLACK-AFR LATVIAN Race 2: Ethnicity: Not or or Nicaraguan Origin Ethnicity 2: Patient's Information Who was Interviewed? Answers: Other - Specify (Caregiver, Family, Friend etc) Notes: kaden BAEZ What language does the patient speak? Answers: Guyanese Admitting Facility Answers: *[facility] [[id number]] Admitting Diagnosis palpitation Advanced Care Planning (check all that apply) Answers: Advanced Directives? Notes: yes Healthcare DPOA? If Yes - Name of DPOA/Relation Notes: kaden Ewing [phone] Additional Patient Notes covid vaccine: fully vaccinated & boosted History and Prior Level of Function DME--PRIOR to Admission: Answers: Andre Notes: PRN Cognitive--PRIOR to Admission: Answers: Alert & Orientated Home Setting--PRIOR to Admission: Answers: Private Home Notes: [facility] has someone staying with him Was patient receiving Home Health Services prior to Admission? Answers: No Potential Barriers to Discharge Anticipated Discharge Disposition Answers: Home with Notes: patient still drives, has unsteady gait , will need pt at DC Does the patient have any potential barriers to DC? (indicate barrier & plan to address) Answers: NO, anticipate DC to previous living situations, no additional services anticipated Signature Signature: Signature Date Signed: 10/12/2021 11:11 AM (PT) Signed By: Stella Mcgovern Position: Inpatient Stoneworking Belt Sander Pager Number: Allscripts Generated (Scan) Page 1 of Copyright 2021 [employer] [facility] [employer]. [Production(ry--[id number])]
[2021-10-12 12:15] VITALS: BP_SYST 131
--- NOTE | 2021-10-12 13:17 | NUR ---
PATIENT IS INDEPENDENT IN HIS FUNCTIONAL MOBILITY. NO NEED FOR FURTHER PHYSICAL THERAPY. NURSING WILL CONTINUE TO SUPERVISE HIM FOR SAFETY.
[2021-10-12 16:16] VITALS: BP_SYST 126
[2021-10-12 20:00] VITALS: BP_SYST 134
--- NOTE | 2021-10-12 20:00 | NUR ---
RECEIVED IN BED AWAKE ABLE TO MAKE NEEDS KNOWN DENIES PAIN AT THIS TIME ASSESSMENT COMPLETED PLAN OF CARE REVIEWED DENIES CHEST PAIN AND PALPATATIIONS PT PACED ON TELEMETRY BREATHING EVEN AND NON LABORED WILL CONITNUE TO MONITOR AND ASSESS
[2021-10-13 00:27] VITALS: BP_SYST 122
[2021-10-13 04:05] VITALS: BP_SYST 129
--- NOTE | 2021-10-13 04:12 | NUR ---
ALL NEEDS ANTICIPATED AND MET NO DITRESS AT THIS TIME
[2021-10-13 07:36] LABS: BASOPHILS % (AUTO) 0.6 % (0.0-2.0); EOSINOPHILS # (AUTO) 0.1 K/uL (0.0-0.4); EOSINOPHILS % (AUTO) 3.9 % (0.0-4.0); HEMATOCRIT 43.9 % (36-54); HEMOGLOBIN 14.8 g/dL (14.0-18.0); LYMPHOCYTES # (AUTO) 1.5 K/uL (1.0-5.5); LYMPHOCYTES % (AUTO) 39.9 % (20.5-51.5); MEAN CORPUSCULAR HEMOGLOBIN 29 pg (27-31); MEAN CORPUSCULAR HGB CONC 34 % (32-36); MEAN CORPUSCULAR VOLUME 87 fL (79.0-98.0); MONOCYTES # (AUTO) 0.2 K/uL (0.0-1.0); MONOCYTES % (AUTO) 6.1 % (1.7-9.3); NEUTROPHILS # (AUTO) 1.8 K/uL (1.8-7.7); NEUTROPHILS % (AUTO) 49.5 % (40.0-70.0); PLATELET COUNT (AUTO) 164 K/uL (130-430); RED BLOOD CELL COUNT(AUTO) 5.08 MIL/uL (4.2-6.2); RED CELL DISTRIBUTION WIDTH 14.5 % (9.0-15.0); WHITE BLOOD COUNT (AUTO) 3.7 K/uL (4.8-10.8)
[2021-10-13 07:47] LABS: ANION GAP 9 (5-15); CALCIUM 9.1 mg/dL (8.4-11.0); CHLORIDE 106 mmol/L (98-107); CREATININE 1.41 mg/dL (0.55-1.30); GLUCOSE 83 mg/dL (70-99); POTASSIUM 4.4 mmol/L (3.5-5.1); SODIUM SERUM 142 mmol/L (136-145); UREA NITROGEN, BLOOD 23 mg/dL (8-21)
[2021-10-13 08:00] VITALS: BP_SYST 140
[2021-10-13] MEDS ORDERED: METOPROLOL SUCCINATE 50 MG TAB.SR.24H (TOPROL XL) PO SCH (09:00)
[2021-10-13] MEDS ORDERED: CHOLECALCIFEROL (VITAMIN D-3) 400 UNIT TABLET PO SCH (09:00)
[2021-10-13] MEDS: MULTIVITS,CA,MINERALS/IRON/FA 1 TABLET PO SCH (09:47)
[2021-10-13] MEDS: APIXABAN 2.5 MG TABLET PO SCH (09:47)
[2021-10-13] MEDS: MECLIZINE HCL 25 MG TABLET (ANITVERT) PO SCH (09:49)
[2021-10-13] MEDS: D5/0.45 NS 1,000 ML IV SCH (09:54)
[2021-10-13] MEDS ORDERED: METO-542 PO (10:08)
[2021-10-13] MEDS ORDERED: APIX2.5T PO (10:08)
[2021-10-13] MEDS ORDERED: MECL-160 PO (10:08)
[2021-10-13 12:00] VITALS: BP_SYST 144
[2021-10-13 14:28] VITALS: BP_SYST 144
== END 2021-10-13 15:06 | disposition home health service (06) | DRG 308 ==
LOC: SED 05:56 → STU 17:10
PROVIDERS: ADMIT Preventive Medicine Preventive Medicine/Occupational Environmental Medicine; ATTEND Preventive Medicine Preventive Medicine/Occupational Environmental Medicine
DX: I48.0 Paroxysmal atrial fibrillation (principal); N17.0 Acute kidney failure with tubular necrosis; E87.0 Hyperosmolality and hypernatremia; R00.2 Palpitations; Z20.822 Contact with and (suspected) exposure to COVID-19; G89.29 Other chronic pain; R42 Dizziness and giddiness; D72.819 Decreased white blood cell count, unspecified; D64.9 Anemia, unspecified; R73.9 Hyperglycemia, unspecified; E55.9 Vitamin D deficiency, unspecified; I12.9 Hypertensive chronic kidney disease with stage 1 through stage 4 chronic kidney disease, or unspecified chronic kidney disease; N18.2 Chronic kidney disease, stage 2 (mild); Z85.46 Personal history of malignant neoplasm of prostate; Z95.0 Presence of cardiac pacemaker; Z79.01 Long term (current) use of anticoagulants; Z87.891 Personal history of nicotine dependence; Z88.0 Allergy status to penicillin; Z88.6 Allergy status to analgesic agent
CPT/HCPCS: 36415; 70450-TC; 71045; 76376; 80048; 80053; 80061; 83735; 83880; 84484; 85025; 85610-TC; 85730-TC; 93005; 93306; 99291; G0378; J8597

== ENCOUNTER 2022-08-09 07:41 | Emergency (ER) | payer OTHER ==
[~2022-08-09] VITALS: Ht 185.4 cm; Wt 81.6 kg
[~2022-08-09 07:41] MED LIST changes: +APIX2.5T PO; +MECL-160 PO; +METO-542 PO
[2022-08-09 07:50] VITALS: BP_SYST 133
[2022-08-09] MEDS ORDERED: COLC0.6T67 PO (08:17)
[2022-08-09] MEDS ORDERED: NAPR-1172 PO (08:17)
[2022-08-09] MEDS ORDERED: ALLO100T PO (08:17)
[2022-08-09 08:35] VITALS: BP_SYST 117
== END 2022-08-09 08:40 | disposition home or self-care (01) ==
LOC: SED 07:41
DX: M10.071 Idiopathic gout, right ankle and foot (principal); M25.471 Effusion, right ankle; I10 Essential (primary) hypertension; Z88.0 Allergy status to penicillin; Z88.6 Allergy status to analgesic agent; Z79.899 Other long term (current) drug therapy
CPT/HCPCS: 99283

== ENCOUNTER 2022-08-26 11:43 | Emergency (ER) | payer OTHER ==
[~2022-08-26] VITALS: Ht 185.4 cm; Wt 90.7 kg
[2022-08-26 11:43] VITALS: BP_SYST 148
[~2022-08-26 11:43] MED LIST changes: +ALLO100T PO; +COLC0.6T67 PO; +NAPR-1172 PO
--- NOTE | 2022-08-26 11:43 | NUR ---
BROUGHT BACK TO BED #4 AND TRIAGED. REPORT GIVEN TO DESI
--- NOTE | 2022-08-26 11:45 | NUR ---
DR GILMORE AT BEDSIDE UPON ARRIVAL
--- NOTE | 2022-08-26 12:01 | NUR ---
PT BROUGHT IN FROM HOME WITH DTR, C/O LEFT ARM SWELLING SINCE THIS AM, DENIES ACUTE TRAUMA/INJURY. NO INSECT BITE HARRIS NOTED, DENIES ITCHING TO SITE. DENIES CP, BUT MILD SOB WITH EXERTION. DENIES HAVING CHF, BUT DOES REPORT A LA LAST YEAR. PT NOW LIVING WITH DTR WHO ASSISTS WITH MEDS, PT ON ELIQUIS, METORPROL, AND ALLOPURINOL FOR GOUT. RESP EVEN AND UNALBORED, ON RA @97%, SAFETY PRECAUTIONS IN PLACE, WILL CONT TO MONITOR.
[2022-08-26 12:19] LABS: BASOPHILS % (AUTO) 0.9 % (0.0-2.0); EOSINOPHILS # (AUTO) 0.1 K/uL (0.0-0.4); EOSINOPHILS % (AUTO) 2.5 % (0.0-4.0); HEMATOCRIT 36.7 % (36-54); LYMPHOCYTES # (AUTO) 1.1 K/uL (1.0-5.5); LYMPHOCYTES % (AUTO) 34.3 % (20.5-51.5); MEAN CORPUSCULAR HEMOGLOBIN 28 pg (27-31); MEAN CORPUSCULAR HGB CONC 33 % (32-36); MEAN CORPUSCULAR VOLUME 87 fL (79.0-98.0); MONOCYTES # (AUTO) 0.3 K/uL (0.0-1.0); NEUTROPHILS # (AUTO) 1.7 K/uL (1.8-7.7); NEUTROPHILS % (AUTO) 52.3 % (40.0-70.0); PLATELET COUNT (AUTO) 140 K/uL (130-430); RED BLOOD CELL COUNT(AUTO) 4.23 MIL/uL (4.2-6.2); RED CELL DISTRIBUTION WIDTH 14.5 % (9.0-15.0); WHITE BLOOD COUNT (AUTO) 3.3 K/uL (4.8-10.8)
[2022-08-26 12:38] LABS: ANION GAP 4 (5-15); CALCIUM 8.7 mg/dL (8.4-11.0); CHLORIDE 108 mmol/L (98-107); CREATININE 1.65 mg/dL (0.55-1.30); GLUCOSE 93 mg/dL (70-99); UREA NITROGEN, BLOOD 16 mg/dL (8-21)
[2022-08-26 12:45] LABS: ALANINE AMINOTRANSFERASE 15 U/L (12-78); ALBUMIN 3.4 g/dL (3.4-4.8); ASPARTATE AMINOTRANSFERASE 20 U/L (10-37); TOTAL BILIRUBIN 0.6 mg/dL (0.0-1.0)
--- NOTE | 2022-08-26 14:42 | NUR ---
Patient given written and verbal discharge instructions and verbalizes understanding. ER MD discussed with patient the results and treatment provided. Patient in stable condition. ID arm band removed. IV catheter removed intact and dressing applied, no active bleeding. Rx of NAPROXYN given. Patient educated on pain management and to follow up with PMD. Pain Scale . Opportunity for questions provided and answered. Medication side effect fact sheet provided.
[2022-08-26 14:43] VITALS: BP_SYST 141
== END 2022-08-26 14:42 | disposition home or self-care (01) ==
LOC: SED 11:43
DX: S50.02XA Contusion of left elbow, initial encounter (principal); I10 Essential (primary) hypertension; Z88.0 Allergy status to penicillin; Z88.6 Allergy status to analgesic agent; Z79.899 Other long term (current) drug therapy; X58.XXXA Exposure to other specified factors, initial encounter; Y93.89 Activity, other specified; Y92.89 Other specified places as the place of occurrence of the external cause; Y99.8 Other external cause status
CPT/HCPCS: 36415; 73060-TC; 73090; 80053; 84484; 85025; 85379; 93971; 99284

== ENCOUNTER 2022-09-01 19:19 | Emergency (ER) | payer OTHER ==
[~2022-09-01] VITALS: Ht 180.3 cm; Wt 90.7 kg
[2022-09-01 19:25] VITALS: BP_SYST 125
[2022-09-01 20:55] LABS: BASOPHILS % (AUTO) 0.7 % (0.0-2.0); EOSINOPHILS # (AUTO) 0.1 K/uL (0.0-0.4); EOSINOPHILS % (AUTO) 1.3 % (0.0-4.0); HEMATOCRIT 36.3 % (36-54); LYMPHOCYTES # (AUTO) 1.3 K/uL (1.0-5.5); LYMPHOCYTES % (AUTO) 31.1 % (20.5-51.5); MEAN CORPUSCULAR HEMOGLOBIN 29 pg (27-31); MEAN CORPUSCULAR HGB CONC 33 % (32-36); MEAN CORPUSCULAR VOLUME 87 fL (79.0-98.0); MONOCYTES # (AUTO) 0.4 K/uL (0.0-1.0); MONOCYTES % (AUTO) 8.9 % (1.7-9.3); NEUTROPHILS # (AUTO) 2.4 K/uL (1.8-7.7); PLATELET COUNT (AUTO) 145 K/uL (130-430); RED BLOOD CELL COUNT(AUTO) 4.19 MIL/uL (4.2-6.2); RED CELL DISTRIBUTION WIDTH 14.5 % (9.0-15.0); WHITE BLOOD COUNT (AUTO) 4.2 K/uL (4.8-10.8)
[2022-09-01 21:02] LABS: ANION GAP 6 (5-15); CALCIUM 8.8 mg/dL (8.4-11.0); CHLORIDE 108 mmol/L (98-107); CREATININE 1.75 mg/dL (0.55-1.30); GLUCOSE 94 mg/dL (70-99); UREA NITROGEN, BLOOD 16 mg/dL (8-21)
[2022-09-01 21:09] LABS: ALANINE AMINOTRANSFERASE 22 U/L (12-78); ALBUMIN 3.6 g/dL (3.4-4.8); ASPARTATE AMINOTRANSFERASE 16 U/L (10-37); TOTAL BILIRUBIN 0.6 mg/dL (0.0-1.0)
[2022-09-01] MEDS ORDERED: FUROSEMIDE 40 MG/4 ML VIAL IVP ONE (21:30)
[2022-09-01] MEDS ORDERED: FURO-150 PO (23:04)
[2022-09-01 23:21] VITALS: BP_SYST 142
== END 2022-09-01 23:19 | disposition home or self-care (01) ==
LOC: SED 19:19
DX: I12.9 Hypertensive chronic kidney disease with stage 1 through stage 4 chronic kidney disease, or unspecified chronic kidney disease (principal); N18.9 Chronic kidney disease, unspecified; R60.0 Localized edema; D72.819 Decreased white blood cell count, unspecified; Z88.0 Allergy status to penicillin; Z88.6 Allergy status to analgesic agent; Z79.899 Other long term (current) drug therapy
CPT/HCPCS: 99285; 96374; 93971; 71045; 80053; 83880; 85025; 84484; 36415; 93005; J1940

== ENCOUNTER 2022-09-06 10:26 | Inpatient (IN) | payer OTHER ==
[~2022-09-06] VITALS: Ht 180.3 cm; Wt 90.3 kg
[~2022-09-06 10:26] MED LIST changes: +FURO-150 PO
[2022-09-06 10:49] VITALS: BP_SYST 130
--- NOTE | 2022-09-06 10:50 | NUR ---
Placed in room 04 . Placed on property assessment monitor, blood pressure machine and pulse oximeter. To gown for exam. Side rails up. Report given to IVA VINSON AND IVA WEEKS.
--- NOTE | 2022-09-06 10:53 | NUR ---
ER DR. MILES EXAMINING PT
[2022-09-06] MEDS ORDERED: cefTRIAXone 1 GM VIAL ONE (11:15)
[2022-09-06] MEDS ORDERED: cefTRIAXone 1 GM in D5W 50 ML IV ONE (11:15)
--- NOTE | 2022-09-06 11:30 | NUR ---
PT BIB SELF C/O SWELLING AND PAIN TO THE LEFT ARM AND RIGHT ANKLE. PT STATES THIS PROBLEM HAS BEEN GOING ON FOR A MONTH. PT LAST VIST TO THE ER WAS 09/01/22. PT STATES HE HAS BEEN HAVING DIFFICULT WALKING AND WITH RANGE OF MOTION. PT IS GCS 15. EYES OPEN SPONTANEOUSLY, ORIENTED TO PERSON, PLACE, TIME AND SITUATION. PT OBEYS COMMANDS. PT DENIES VISUAL OR AUDITORY PROBLEM AT THIS TIME. PT DENIES N/V/D, CHEST PAIN OR SOB. PT SKIN IS SWOLLEN +2 NON PITTING. PT CAP-REFIL IS <3 ON THE RIGHT FOOT AND LEFT HAND. PT COMPLAINS OF PAIN DURING RANGE OF MOTION ASSESSMENT ON LEFT ARM. PT DENIES URINARY OR BOWEL ISSUES ATT. PT IN ROOM 4 ON THE MONITOR. PLAN OF CARE CONTINUES.
[2022-09-06 11:39] LABS: BASOPHILS % (AUTO) 0.9 % (0.0-2.0); EOSINOPHILS # (AUTO) 0.1 K/uL (0.0-0.4); EOSINOPHILS % (AUTO) 2.3 % (0.0-4.0); HEMATOCRIT 36.6 % (36-54); HEMOGLOBIN 12.1 g/dL (14.0-18.0); LYMPHOCYTES # (AUTO) 1.1 K/uL (1.0-5.5); LYMPHOCYTES % (AUTO) 37.1 % (20.5-51.5); MEAN CORPUSCULAR HEMOGLOBIN 29 pg (27-31); MEAN CORPUSCULAR HGB CONC 33 % (32-36); MEAN CORPUSCULAR VOLUME 87 fL (79.0-98.0); MONOCYTES # (AUTO) 0.2 K/uL (0.0-1.0); NEUTROPHILS # (AUTO) 1.5 K/uL (1.8-7.7); NEUTROPHILS % (AUTO) 51.7 % (40.0-70.0); PLATELET COUNT (AUTO) 154 K/uL (130-430); RED BLOOD CELL COUNT(AUTO) 4.21 MIL/uL (4.2-6.2); RED CELL DISTRIBUTION WIDTH 14.3 % (9.0-15.0); WHITE BLOOD COUNT (AUTO) 2.9 K/uL (4.8-10.8)
--- NOTE | 2022-09-06 11:47 | NUR ---
20 G IV STARTED IN THE RIGHT AC.
[2022-09-06 11:53] LABS: ANION GAP 5 (5-15); CALCIUM 8.7 mg/dL (8.4-11.0); CHLORIDE 107 mmol/L (98-107); CREATININE 1.69 mg/dL (0.55-1.30); GLUCOSE 110 mg/dL (74-106); UREA NITROGEN, BLOOD 20 mg/dL (8-21)
[2022-09-06 12:00] LABS: ALANINE AMINOTRANSFERASE 20 U/L (12-78); ALBUMIN 3.3 g/dL (3.4-4.8); ASPARTATE AMINOTRANSFERASE 16 U/L (10-37); TOTAL BILIRUBIN 0.5 mg/dL (0.0-1.0)
[2022-09-06] MEDS ORDERED: HYDROcodone/ACETAMIN 5-325 MG TAB (NORCO/ VICODIN) PO ONE (12:15)
[2022-09-06] MEDS ORDERED: FUROSEMIDE 100 MG/10 ML VIAL IVP ONE (12:15)
--- NOTE | 2022-09-06 13:43 | NUR ---
DR KAUFFMAN IN ROOM FOR RE-EXAM.
--- NOTE | 2022-09-06 14:14 | NUR ---
NOTIFIED ED ADMITTING, JENNIFER, REGARDING DR. BEAVER'S REQUEST FOR ADMISSION/TRANSFER. PER DR. BEAVER, PT IS STABLE FOR TRANSFER. WILL CONTACT PUBLIC SAFETY TEACHER REGARDING THIS MATTER. PER [facility]: [facility]
--- NOTE | 2022-09-06 14:35 | NUR ---
Medication reconciliation completed with information provided by PATIENT. Any prior medication reconciliation on file was reviewed and corrected.
[2022-09-06 14:37] LABS: INR 1.1 (0.80-1.20)
[2022-09-06] MEDS ORDERED: ENOXAPARIN SODIUM 100 MG/ML SYRINGE SUBCUT ONE (15:00)
--- NOTE | 2022-09-06 15:29 | NUR ---
INSURANCE REQUESTED FAX OF [facility] FAX: [phone] ATTN: STANISLAV
--- NOTE | 2022-09-06 17:13 | NUR ---
Admit bed requested Patient will be admitted to care of . Admitted to TELE unit. Diagnosis DVT, LUE Inpatient (Yes or No) Y Observation (Yes or No) N Orientation concerns or request close to nursing station (Yes or No) Covid Status NA On vent or bipap N Isolation requirements N Needs a sitter N From Home (Yes or if No enter name of facility) Y Requires Dialysis (Yes or No) N Med Rec Completed (Yes of No) Y
[2022-09-06] MEDS ORDERED: *HEPARIN PER PHARMACY XX ONE (17:15)
--- NOTE | 2022-09-06 18:39 | NUR ---
Admission of a 87 year old male under the care of Doctor Linden with a left jugular deep vein thrombosis. His chief complaint is right ankle pain. Patient shows sinus rhythm pacing at 64 beats per minute on security monitor.
[2022-09-06 18:42] VITALS: BP_SYST 143
--- NOTE | 2022-09-06 18:51 | NUR ---
Patient will be admitted to care of [DR. ADRIAN]. Admitted to [TELE] unit. Will go to room [102A]. Belongings list completed. Complete and up to date summary report printed. SBAR report to be given at bedside with opportunity for questions. GAVE REPORT TO RN KERI
[2022-09-06 20:00] VITALS: BP_SYST 125
--- NOTE | 2022-09-06 20:21 | NUR ---
Paged for left arm pain, cramping like spasm.
[2022-09-06] MEDS: HYDROcodone/ACETAMIN 5-325 MG TAB (NORCO/ VICODIN) PO PRN (20:47)
--- NOTE | 2022-09-06 21:30 | NUR ---
Seen and examined by , No BP in left arm due to DVT ,with limb alert.
[2022-09-06] MEDS ORDERED: HEPARIN SODIUM,PORCINE 2000 UNITS/0.4 ML BOLUS IVP PRN (23:00)
[2022-09-06] MEDS ORDERED: HEPARIN SODIUM,PORCINE 3000 UNITS/0.6 ML BOLUS IVP PRN (23:00)
[2022-09-06] MEDS: HEPARIN 25,000 UNITS in 250 ML PREMIX IV PRN (23:00)
--- NOTE | 2022-09-06 23:00 | NUR ---
Heparin drip started @1500 units/hour PTT 24.3 ,per pharmacy protocol repeat PTT after 6 hours ordered for 0500 am,bleeding /safety precaution instructed to patient will monitor.
[2022-09-07 01:09] VITALS: BP_SYST 123
--- NOTE | 2022-09-07 01:34 | NUR ---
Consultation Paged Reason for Consult: Pacemaker Was consult called: Y Person who was notified: Ciara Consulting Physician: Dr. Bentley Ordering Physician: Dr. Cheatham
--- NOTE | 2022-09-07 04:54 | NUR ---
Assisted patient to bathroom with stand bye assist to dizziness.
--- NOTE | 2022-09-07 05:49 | NUR ---
CONSULTATION PAGED/CALLED Reason for Consultation: DVT Person Who was Notified: PAPO Consulting Physician: Cashier Specialty: BOWLING BALL ENGRAVER Ordering Physician: DR. ADRIAN
[2022-09-07 06:15] LABS: BASOPHILS % (AUTO) 0.4 % (0.0-2.0); EOSINOPHILS # (AUTO) 0.1 K/uL (0.0-0.4); HEMATOCRIT 40.1 % (36-54); HEMOGLOBIN 13.2 g/dL (14.0-18.0); LYMPHOCYTES # (AUTO) 1.4 K/uL (1.0-5.5); LYMPHOCYTES % (AUTO) 42.9 % (20.5-51.5); MEAN CORPUSCULAR HEMOGLOBIN 29 pg (27-31); MEAN CORPUSCULAR HGB CONC 33 % (32-36); MEAN CORPUSCULAR VOLUME 87 fL (79.0-98.0); MONOCYTES # (AUTO) 0.3 K/uL (0.0-1.0); MONOCYTES % (AUTO) 10.3 % (1.7-9.3); NEUTROPHILS # (AUTO) 1.3 K/uL (1.8-7.7); NEUTROPHILS % (AUTO) 42.4 % (40.0-70.0); PLATELET COUNT (AUTO) 152 K/uL (130-430); RED BLOOD CELL COUNT(AUTO) 4.61 MIL/uL (4.2-6.2); RED CELL DISTRIBUTION WIDTH 14.3 % (9.0-15.0); WHITE BLOOD COUNT (AUTO) 3.2 K/uL (4.8-10.8)
[2022-09-07 06:35] LABS: ALANINE AMINOTRANSFERASE 19 U/L (12-78); ALBUMIN 3.7 g/dL (3.4-4.8); ANION GAP 6 (5-15); ASPARTATE AMINOTRANSFERASE 21 U/L (10-37); CHLORIDE 103 mmol/L (98-107); CREATININE 1.61 mg/dL (0.55-1.30); GLUCOSE 96 mg/dL (74-106); TOTAL BILIRUBIN 0.5 mg/dL (0.0-1.0); UREA NITROGEN, BLOOD 20 mg/dL (8-21)
[2022-09-07 08:00] VITALS: BP_SYST 114
--- NOTE | 2022-09-07 08:00 | NUR ---
START OF SHIFT Pt sitting up in bed eating his breakfast. Pt's IV in RAC intact and patent infusing Heparin Drip. Pt's bed in low position and side rails raised. Bed alarm on and tele unit attached and intact at this time. Call light within reach.
[2022-09-07] MEDS: ALLOPURINOL 100 MG TABLET (ZYLOPRIM) PO SCH (08:36)
[2022-09-07] MEDS: METOPROLOL SUCCINATE 50 MG TAB.SR.24H (TOPROL XL) PO SCH (08:37)
--- NOTE | 2022-09-07 10:00 | NUR ---
Note 0905am - Heparin Drip held - PTT = 98.9 Dr Bentley at bedside (0910am) assessing pt and answering questions/concerns at this time. Pt's IV in RAC was dc'd due to tenderness and infiltration. New IV in right upper arm 20g'. Pt off the floor to [place] dept for study.
[2022-09-07] MEDS: HEPARIN 25,000 UNITS in 250 ML PREMIX IV PRN ×2 (10:30→16:17)
[2022-09-07 11:29] VITALS: BP_SYST 109
--- NOTE | 2022-09-07 11:35 | NUR ---
NOTE Pt returned to floor/bed at 1025am from [place] dept. Heparin Drip restarted at 13 units/hr on right upper arm IV site. Call light within reach. Tele was reapplied at this time as well. Call light within reach. No needs noted.
--- NOTE | 2022-09-07 12:41 | NUR ---
LAUREN spoke with Dr Cheatham; patient needs HLOC for pacemaker wire removal. [phone]. Kayleigh will send message to Ange in auth dept. LAUREN to follow up
--- NOTE | 2022-09-07 14:00 | NUR ---
Ange at [facility] called to confirm authorization sent to [facility]. [facility] will contact LAUREN
--- NOTE | 2022-09-07 15:07 | NUR ---
LAUREN received phone call from Susan at [facility] transfer center [phone]. LAUREN faxed updated clinicals to Susan f#[phone]. Susan given Dr Cheatham # for MD to MD review. Waiting on CDs for packet. Susan to call when bed available.
[2022-09-07 16:00] VITALS: BP_SYST 114
--- NOTE | 2022-09-07 16:31 | NUR ---
Transfer packet ready. will place on unit. [facility] [place] to call nurse station for accepting MD and when bed available. After hours numbers on packet for RN to call for authorization for transportation if needed. CM to follow up in am
--- NOTE | 2022-09-07 16:45 | NUR ---
Note Called CORNEL (case operator) clarification of transfer received at this time. [facility] will call with bed number and phone number to call fro report today/tomorrow. Then we can call [facility] for ambulance.
--- NOTE | 2022-09-07 19:00 | NUR ---
End of shift Called Dr Cheatham and informed MD that pt pulled off his IV in DISHA. Pt hard stick and attempts made to restart IV - unsuccessfully. Order received to have midline placed, stop Heparin Drip, start Seroquel PO and Eliquis PO. Transfer to higher level of care was cancelled. Pt's daughter Annetta at bedside at this time. Call light within reach.
[2022-09-07 19:30] VITALS: BP_SYST 138
--- NOTE | 2022-09-07 19:40 | NUR ---
INITIAL NOTE AT INITIAL ASSESSMENT, PATIENT IS RESTING IN BED, STABLE, NO SIGNS OF RESPIRATORY DISTRESS. PATIENT VERBALIZES NO PAIN. PLAN OF CARE FOR THE EVENING IS COMMUNICATED TO THE PATIENT AND HIS DAUGHTER CLARISA AND HER AT BEDSIDE. PATIENT IS CONFUSED BUT AGREEABLE TO CARE. PATIENT UNABLE TO DEMONSTRATE CORRECT OF CALL LIGHT USAGE DUE TO COGNITIVE IMPAIRMENT. WILL MONITOR PATIENT CLOSELY WITH Q1 HOURLY ROUNDS. FALL, SAFETY, RESPIRATORY, AND ASPIRATION PRECAUTIONS WILL BE TAKEN THROUGHOUT THE SHIFT.
[2022-09-07] MEDS ORDERED: QUEtiapine FUMARATE 25 MG TABLET PO SCH (21:00)
[2022-09-07] MEDS: APIXABAN 2.5 MG TABLET PO SCH (21:20)
[2022-09-07] MEDS: HYDROcodone/ACETAMIN 5-325 MG TAB (NORCO/ VICODIN) PO PRN (23:32)
--- NOTE | 2022-09-07 23:45 | NUR ---
COMMUNICATION W/ DR. KAYLAH ADRIAN PAGED AT THIS TIME, MD MADE AWARE THAT PATIENT IS VERY ANXIOUS, HAS WOBBLY GAIT AND CONTINUOUSLY GETS OUT OF BED EVERY 1-2 MINUTES DESPITE REORIENTATION EFFORTS. MD GAVE ORDERS FOR BILATERAL WRIST RESTRAINTS, AND PRN MEDICATION FOR ANXIETY/AGITATION. ALL ORDERS READ BACK AND VERIFIED. CHARGE NURSE MADE AWARE.
--- NOTE | 2022-09-08 00:08 | NUR ---
COMMUNICATION WITH DAUGHTER / RESTRAINTS PATIENT'S DAUGHTER DONNA CALLED AND MADE AWARE THAT FOR SAFETY REASONS, BILATERAL WRITS RESTRAINTS WERE NECESSARY FOR HER FATHER'S SAFETY. SHE WAS MADE AWARE THAT PATIENT HAS BEEN CONTINUOUSLY GETTING OUT OF BED CONFUSED EVERY 1-2 MINUTES, WITH WOBBLY GAIT, AND IS HOW AT HIGH RISK FOR FALL. DAUGHTER MADE AWARE THAT RESTRAINTS WILL BE TAKEN OFF AT THE EARLIEST TIME POSSIBLE IF PATIENT IS ABLE TO BE CALMED DOWN THROUGH ANY OTHER METHODS SUCH PRN MEDICATION FOR AGITATION. DAUGHTER STATED SHE UNDERSTOOD, AND GAVE CONSENT, SHE STATES A FAMILY MEMBER WILL LIKELY COME TO SIT WITH PATIENT IN THE THE MORNING. WILL CONTINUE TO MONITOR PATIENT CLOSELY.
--- NOTE | 2022-09-08 00:36 | NUR ---
GRANDDAUGHTER VISITING AT BEDSIDE PATIENT'S GRANDDAUGHTER WOO IS AT BEDSIDE FOR A QUICK VISIT TO SEE HOW PATIENT IS REACTING TO THE WRIST RESTRAINTS. PATIENT IS TOLERATING WELL, AGREED PLAN OF CARE WITH WOO TO REMOVE BILATERAL WRIST RESTRAINTS SOON POSSIBLE WHEN SAFE.
[2022-09-08] MEDS: LORazepam 1 MG TABLET PO PRN ×2 (01:44→07:36)
[2022-09-08 02:06] VITALS: BP_SYST 159
--- NOTE | 2022-09-08 04:00 | NUR ---
HYGIENE CARE NOTE HYGIENE CARE PROVIDED AT THIS TIME, PATIENT TOLERATED WELL. FRESH LINENS PROVIDED. HE IS REPOSITIONED FOR COMFORT. CALL LIGHT PLACED WITHIN REACH.
--- NOTE | 2022-09-08 06:50 | NUR ---
CLOSING NOTE/ DAUGHTER DONNA AT BEDSIDE PATIENT IS RESTLESS THIS MORNING, HE CONTINUALLY TRIES TO GET OUT OF BED, HE IS ABLE TO GET OUT OF HIS RESTRAINTS DESPITE SEVERAL ATTEMPTS TO RE-SECURE THEM, REFUSES ATIVAN, IS REFUSING BLOOD DRAW LABWORK, AND PATIENT. HE IS SAYING HE "DOESN'T TRUST" ANYONE, INCLUDING HIS DAUGHTER WHO IS TRYING TO REORIENT HIM THIS MORNING. HIS DAUGHTER DONNA IS NOW AT BEDSIDE TO HELP MONITOR FOR SAFETY REASONS SINCE HE HIS STILL A FALL RISK. WILL CONTINUE TO MONITOR CLOSELY UNTIL REPORT IS GIVEN AT BEDSIDE TO AM NURSE.
[2022-09-08 08:00] VITALS: BP_SYST 139
[2022-09-08] MEDS: METOPROLOL SUCCINATE 50 MG TAB.SR.24H (TOPROL XL) PO SCH (08:09)
[2022-09-08] MEDS: APIXABAN 2.5 MG TABLET PO SCH ×2 (08:09→21:25)
[2022-09-08] MEDS: ALLOPURINOL 100 MG TABLET (ZYLOPRIM) PO SCH (08:09)
--- NOTE | 2022-09-08 08:50 | NUR ---
START OF SHIFT Pt's daughter Annetta came to pt's bedside at 0715am, while daughter was at bedside, pt ambulated to restroom and returned to bed, sat on side of bed and ate his breakfast. While daughter was at bedside, pt took all his 09am PO meds and blood draw was done. Pt's daughter left bedside at this time. Pt calm and sleepy at this time. Call light within reach. Bed in low position and bed alarm on. Side rails raised. Pt near nurses' station for close observation for needs and care.
--- NOTE | 2022-09-08 09:40 | NUR ---
NOTE Pt's daughter Annetta left bedside at 0850am, Pastor Bermudez came to bedside 0925am to sit at bedside. Florentin (midline RN) finished inserting midline in DISHA at this time.
[2022-09-08 09:41] LABS: BASOPHILS % (AUTO) 0.6 % (0.0-2.0); EOSINOPHILS % (AUTO) 0.7 % (0.0-4.0); HEMATOCRIT 41.5 % (36-54); HEMOGLOBIN 13.6 g/dL (14.0-18.0); LYMPHOCYTES # (AUTO) 0.8 K/uL (1.0-5.5); MEAN CORPUSCULAR HEMOGLOBIN 28 pg (27-31); MEAN CORPUSCULAR HGB CONC 33 % (32-36); MEAN CORPUSCULAR VOLUME 87 fL (79.0-98.0); MONOCYTES # (AUTO) 0.3 K/uL (0.0-1.0); MONOCYTES % (AUTO) 8.5 % (1.7-9.3); NEUTROPHILS # (AUTO) 2.3 K/uL (1.8-7.7); NEUTROPHILS % (AUTO) 68.2 % (40.0-70.0); PLATELET COUNT (AUTO) 171 K/uL (130-430); RED BLOOD CELL COUNT(AUTO) 4.77 MIL/uL (4.2-6.2); RED CELL DISTRIBUTION WIDTH 14.3 % (9.0-15.0); WHITE BLOOD COUNT (AUTO) 3.4 K/uL (4.8-10.8)
[2022-09-08 09:45] LABS: ANION GAP 7 (5-15); CALCIUM 9.4 mg/dL (8.4-11.0); CHLORIDE 102 mmol/L (98-107); CREATININE 1.84 mg/dL (0.55-1.30); GLUCOSE 150 mg/dL (74-106); UREA NITROGEN, BLOOD 21 mg/dL (8-21)
--- NOTE | 2022-09-08 14:25 | NUR ---
Note Dr Cheatham on the floor at 1345, was informed that pt's midline was placed and if any IVF's needed to be started. MD to assess pt and write orders.
--- NOTE | 2022-09-08 15:15 | NUR ---
VS PT'S VITAL SIGNS: TEMP 98.2; HR 70; O2 SATS ON ROOM AIR 99%; RR 17; BP 136/59. PT IS SINUS RHYTHM ALL SHIFT.
--- NOTE | 2022-09-08 16:12 | NUR ---
CM faxed VS, heart rhythm analysis and recent MD progress notes to [facility] transfer center f# [phone]
--- NOTE | 2022-09-08 16:32 | NUR ---
[facility] WAS FAXED AT [phone] [facility]. SHE BE SETTTING UP. HER DIRECT NUMBER IS [phone]. WE DONT HAVE DISCHARGE ORDER.
[2022-09-08 17:12] VITALS: BP_SYST 136
--- NOTE | 2022-09-08 17:16 | NUR ---
Dietitian Recommendations * Mechanical Soft, Cardiac diet LP, MS, RD Please refer to Nutrition Assessment for details. Addendum: 09/08/22 at [address] Amended: Links added.
[2022-09-08] MEDS ORDERED: QUEtiapine FUMARATE 25 MG TABLET PO SCH (18:00)
--- NOTE | 2022-09-08 18:10 | NUR ---
End of shift Pt sitting up in bed waiting for dinner. Pt ambulated in room and to the restroom with bis cane and with standby assist. Pt was checked on q1' and PRN all shift for needs and care. Pt was maintained with safety precautions all shift. IV in DISHA midline intact and patent at this time. Venous Doppler on left upper arm shows DVT/Thrombus still present. Pt's bed in low position and bed alarm on. Side rails raised and pt near nurses' station for close observation for needs and care. Pt calm at this time. Call light within reach. Pt's tele was dc'd at 1515 and returned to design technician.
[2022-09-08 20:00] VITALS: BP_SYST 118
[2022-09-09 00:31] VITALS: BP_SYST 136
[2022-09-09 06:56] LABS: ALANINE AMINOTRANSFERASE 19 U/L (12-78); ALBUMIN 3.5 g/dL (3.4-4.8); ANION GAP 5 (5-15); ASPARTATE AMINOTRANSFERASE 21 U/L (10-37); CALCIUM 9.1 mg/dL (8.4-11.0); CHLORIDE 103 mmol/L (98-107); CREATININE 1.75 mg/dL (0.55-1.30); GLUCOSE 101 mg/dL (74-106); THYROID STIMULATING HORMONE 3.21 uIu/mL (0.34-4.82); TOTAL BILIRUBIN 0.5 mg/dL (0.0-1.0); UREA NITROGEN, BLOOD 21 mg/dL (8-21)
[2022-09-09 07:08] LABS: BASOPHILS % (AUTO) 0.6 % (0.0-2.0); EOSINOPHILS # (AUTO) 0.1 K/uL (0.0-0.4); EOSINOPHILS % (AUTO) 3.2 % (0.0-4.0); HEMATOCRIT 40.2 % (36-54); HEMOGLOBIN 12.8 g/dL (14.0-18.0); LYMPHOCYTES # (AUTO) 1.4 K/uL (1.0-5.5); LYMPHOCYTES % (AUTO) 39.9 % (20.5-51.5); MEAN CORPUSCULAR HEMOGLOBIN 28 pg (27-31); MEAN CORPUSCULAR HGB CONC 32 % (32-36); MEAN CORPUSCULAR VOLUME 87 fL (79.0-98.0); MONOCYTES # (AUTO) 0.3 K/uL (0.0-1.0); MONOCYTES % (AUTO) 7.7 % (1.7-9.3); NEUTROPHILS # (AUTO) 1.7 K/uL (1.8-7.7); NEUTROPHILS % (AUTO) 48.6 % (40.0-70.0); PLATELET COUNT (AUTO) 162 K/uL (130-430); RED CELL DISTRIBUTION WIDTH 14.3 % (9.0-15.0); WHITE BLOOD COUNT (AUTO) 3.4 K/uL (4.8-10.8)
[2022-09-09 08:00] VITALS: BP_SYST 130
[2022-09-09] MEDS: ALLOPURINOL 100 MG TABLET (ZYLOPRIM) PO SCH (10:34)
[2022-09-09] MEDS: METOPROLOL SUCCINATE 50 MG TAB.SR.24H (TOPROL XL) PO SCH (10:35)
[2022-09-09] MEDS: APIXABAN 2.5 MG TABLET PO SCH (11:03)
[2022-09-09 12:00] VITALS: BP_SYST 123
[2022-09-09 12:25] VITALS: BP_SYST 130
--- NOTE | 2022-09-09 13:40 | NUR ---
Patient discharged home per MD Cheatham orders. Daughter notified of discharge with prescription medication instructions. Midline Catheter removed per MD Cheatham orders. Patient picked up via private vehicle at [facility], [place]. Patient condition is good and stable upon discharge. End of care.
== END 2022-09-09 14:45 | disposition home health service (06) | DRG 300 ==
LOC: SED 10:26 → STU 17:10 → SMU 09-08 14:48
PROVIDERS: ADMIT Internal Medicine; ATTEND Internal Medicine
PROC: 05HY33Z Insertion of Infusion Device into Upper Vein, Percutaneous Approach (ICD-10-PCS; principal; 2022-09-08)
PROC: B54MZZA Ultrasonography of Right Upper Extremity Veins, Guidance (ICD-10-PCS; 2022-09-08)
DX: I82.C12 Acute embolism and thrombosis of left internal jugular vein (principal); D68.59 Other primary thrombophilia; E44.1 Mild protein-calorie malnutrition; I48.0 Paroxysmal atrial fibrillation; F03.90 Unspecified dementia, unspecified severity, without behavioral disturbance, psychotic disturbance, mood disturbance, and anxiety; M10.9 Gout, unspecified; I25.10 Atherosclerotic heart disease of native coronary artery without angina pectoris; D64.9 Anemia, unspecified; D72.819 Decreased white blood cell count, unspecified; Z88.6 Allergy status to analgesic agent; Z88.0 Allergy status to penicillin; Z91.148 Patient's other noncompliance with medication regimen for other reason; Z87.891 Personal history of nicotine dependence; Z85.46 Personal history of malignant neoplasm of prostate; Z79.01 Long term (current) use of anticoagulants; Z95.0 Presence of cardiac pacemaker; Z79.899 Other long term (current) drug therapy; Z68.27 Body mass index [BMI] 27.0-27.9, adult; I82.622 Acute embolism and thrombosis of deep veins of left upper extremity
CPT/HCPCS: 36415; 71045; 78579; 78580-TC; 80048; 80053; 83605; 83880; 84443; 84484; 85025; 85379; 85610-TC; 85730-TC; 87040; 93971; 96365; 96372; 96375; 99285; A9539; A9540; G0378; J0696; J1644; J1650; J1940

== ENCOUNTER 2022-09-17 14:42 | Emergency (ER) | payer OTHER ==
[~2022-09-17] VITALS: Ht 180.3 cm; Wt 93.0 kg
[~2022-09-17 14:42] MED LIST changes: -CHOL400D6 PO; -COLC0.6T67 PO; -FURO-150 PO; -MECL-160 PO; -MULT-1200 PO; -NAPR-1172 PO
[2022-09-17 15:20] VITALS: BP_SYST 126; PULSE 64; RESP 18; TEMP 97; O2SAT 98
[2022-09-17 17:18] LABS: BASOPHILS % (AUTO) 1.2 % (0.0-2.0); EOSINOPHILS # (AUTO) 0.1 K/uL (0.0-0.4); EOSINOPHILS % (AUTO) 3.1 % (0.0-4.0); HEMATOCRIT 37.5 % (36-54); HEMOGLOBIN 12.2 g/dL (14.0-18.0); LYMPHOCYTES # (AUTO) 1.4 K/uL (1.0-5.5); LYMPHOCYTES % (AUTO) 40.4 % (20.5-51.5); MEAN CORPUSCULAR HEMOGLOBIN 28 pg (27-31); MEAN CORPUSCULAR HGB CONC 32 % (32-36); MEAN CORPUSCULAR VOLUME 87 fL (79.0-98.0); MONOCYTES # (AUTO) 0.2 K/uL (0.0-1.0); MONOCYTES % (AUTO) 7.1 % (1.7-9.3); NEUTROPHILS # (AUTO) 1.7 K/uL (1.8-7.7); NEUTROPHILS % (AUTO) 48.2 % (40.0-70.0); PLATELET COUNT (AUTO) 158 K/uL (130-430); RED BLOOD CELL COUNT(AUTO) 4.32 MIL/uL (4.2-6.2); RED CELL DISTRIBUTION WIDTH 14.5 % (9.0-15.0); WHITE BLOOD COUNT (AUTO) 3.5 K/uL (4.8-10.8)
[2022-09-17 17:39] LABS: ALANINE AMINOTRANSFERASE 18 U/L (12-78); ALBUMIN 3.6 g/dL (3.4-4.8); ANION GAP 5 (5-15); ASPARTATE AMINOTRANSFERASE 18 U/L (10-37); CALCIUM 9.1 mg/dL (8.4-11.0); CHLORIDE 109 mmol/L (98-107); CREATININE 1.59 mg/dL (0.55-1.30); GLUCOSE 92 mg/dL (74-106); TOTAL BILIRUBIN 0.4 mg/dL (0.0-1.0); UREA NITROGEN, BLOOD 18 mg/dL (8-21)
[2022-09-17 19:51] VITALS: BP_SYST 147; PULSE 72; RESP 19; TEMP 98; O2SAT 97
== END 2022-09-17 19:15 | disposition home or self-care (01) ==
LOC: SED 14:42
DX: I82.C12 Acute embolism and thrombosis of left internal jugular vein (principal); I10 Essential (primary) hypertension; Z88.0 Allergy status to penicillin; Z88.6 Allergy status to analgesic agent; Z85.46 Personal history of malignant neoplasm of prostate; Z79.899 Other long term (current) drug therapy
CPT/HCPCS: 36415; 71045; 80053; 83880; 85025; 93880; 93971; 99284